=== PATIENT | male | born 1980 | race Caucasian/White ===

== ENCOUNTER → 2017-12-29 | Outpatient (CLI) | payer OTHER ==
[~2017-12-29] MED LIST: CLIN1CAP5 PO; DEXA4TAB PO; HYDR-3580 PO; RANI150 PO
== END ==
LOC: HEDF 10:26
DX: M54.9 Dorsalgia, unspecified (principal); V89.2XXA Person injured in unspecified motor-vehicle accident, traffic, initial encounter
CPT/HCPCS: A0431; A0436